=== PATIENT | female | born 1965 | race Caucasian/White ===

== ENCOUNTER 2020-10-09 13:24 | Emergency (ER) | payer OTHER ==
[~2020-10-09] VITALS: Ht 170.2 cm; Wt 62.3 kg
[2020-10-09 13:38] VITALS: TEMP 97.8
[2020-10-09] MEDS ORDERED: SYNTHROID0.125 MG/T PO (13:49)
[2020-10-09 14:04] LABS: HEMATOCRIT 40.5 % (37.0-47.0); HEMOGLOBIN 13.8 g/dl (12.5-16.0); MEAN CELL VOLUME 92 fl (80.0-100.0); MEAN CORPUSCULAR HEMOGLOBIN 31 pg (27.0-31.0); MEAN CORPUSCULAR HGB CONC 34 g/dl (33.0-37.0); MEAN PLATELET VOLUME 11.1 fl (7.4-10.4); PLATELET COUNT 165 K/mm3 (130-400); REDCELL DISTRIBUTION WIDTH-CV 11.8 % (11.5-14.5)
[2020-10-09 14:16] LABS: ALANINE AMINOTRANSFERASE 17 U/L (4-34); ALKALINE PHOSPHATASE 58 U/L (50-136); ANION GAP 3 mmol/L (7-16); AST,SGOT 41 U/L (15-37); BILIRUBIN,TOTAL 0.3 mg/dL (0.0-1.0); BLOOD UREA NITROGEN 11 mg/dL (7-17); CARBON DIOXIDE 30 mmol/L (22-30); CHLORIDE 99 mmol/L (98-107); CREATININE, serum 0.67 (0.52-1.25); GLUCOSE 112 mg/dL (74-106); POTASSIUM 3.9 mmol/L (3.4-5.0); SODIUM 132 mmol/L (137-145); TOTAL PROTEIN 7.7 gm/dL (6.4-8.2)
[2020-10-09 14:34] LABS: BAND 6 % (0-10); C-REACTIVE PROTEIN 3.2 mg/dL (0.0-0.9); LYMPHOCYTE 31 % (20.0-51.0); NEUTROPHILS 52 % (42.0-75.2); PLATELET ESTIMATE NORMAL (NORMAL)
[2020-10-09 14:38] LABS: TROPONIN-I < 0.012 ng/mL (0.000-0.035)
[2020-10-09] MEDS ORDERED: MEDROL 4MG DOSPA4 MG PO (17:06)
[2020-10-09 18:00] VITALS: BP 99/69; PULSE 65
== END 2020-10-09 18:04 | disposition home or self-care (01) ==
LOC: COL.ER 13:24
PROVIDERS: Nurse Practitioner
DX: U07.1 COVID-19 (principal)
CPT/HCPCS: J7030; Q9967